=== PATIENT | female | born 1970 | race Caucasian/White ===

== ENCOUNTER → 2016-12-17 | Outpatient (CLI) | payer OTHER ==
[~2016-12-17] MED LIST: ANAS1TAB PO; ASCO10004 PO; ASCO1TAB4 PO; CEPH-368 PO; CHOL400T10 PO; CHOL5000 PO; CITA20TA5 PO; DIPHEN/ATROPINE PO; GABA100C8 PO; IMMUNE BOOSTER PO; MELA10TA3 PO; OMEP-110 PO; ONDA4TAB7 PO; OXYC-302 PO; VITAMIN B 6 PO; VITAMIN B12 PO; [UNRECOGNIZED DRUG - CODE] PO; iodoral PO; magnesium PO; nyquil PO
[2016-12-17 15:07] LABS: HEMOGLOBIN 14.1 g/dL (11.7-16.4)
== END | disposition home or self-care (01) ==
LOC: STAR 13:50
PROVIDERS: ATTEND Obstetrics & Gynecology Female Pelvic Medicine and Reconstructive Surgery
DX: Z01.818 Encounter for other preprocedural examination (principal); Z85.3 Personal history of malignant neoplasm of breast
CPT/HCPCS: 36415; 85025

== ENCOUNTER 2016-12-29 05:58 | Day surgery (SDC) | payer OTHER ==
[~2016-12-29] VITALS: Ht 167.6 cm; Wt 60.0 kg
[2016-12-29 06:54] VITALS: BP 128/84
[2016-12-29] MEDS ORDERED: LACTATED RINGERS 1,000 ML IV SCH ×2 (06:54→09:05)
[2016-12-29] MEDS ORDERED: FLUORESCEIN SODIUM 500 MG/5 ML ONE (07:06)
[2016-12-29] MEDS ORDERED: BUPIVACAINE/PF-EPI 0.25% 1:200K ONE (07:06)
[2016-12-29] MEDS ORDERED: CLINDAMYCIN 150 MG/ML, 6ML ONE (07:15)
[2016-12-29] MEDS ORDERED: FENTANYL PF 250 MCG/5ML ONE (07:18)
[2016-12-29] MEDS ORDERED: MIDAZOLAM 1 MG/ML, 2ML ONE (07:19)
[2016-12-29 07:26] LABS: HCG UR OBC PASS
[2016-12-29] MEDS ORDERED: ONDANSETRON 2MG/ML, 2ML ONE (07:26)
[2016-12-29] MEDS ORDERED: PROPOFOL 10 MG/ML, 20ML ONE (07:26)
[2016-12-29] MEDS ORDERED: ROCURONIUM 10 MG/ML ONE (07:26)
[2016-12-29] MEDS ORDERED: KETOROLAC 30 MG/1 ML ONE (07:26)
[2016-12-29] MEDS ORDERED: GLYCOPYRROLATE 0.2MG/1ML ONE (07:26)
[2016-12-29] MEDS ORDERED: NEOSTIGMINE 1 MG/ML, 10ML ONE (07:26)
[2016-12-29] MEDS ORDERED: DEXAMETHASONE 4 MG/ML, 1ML ONE (07:26)
[2016-12-29] MEDS ORDERED: PROMETHAZINE 25 MG/ML, 1ML IV PRN (08:30)
[2016-12-29] MEDS ORDERED: FENTANYL PF 100 MCG/2ML IV PRN (08:30)
[2016-12-29] MEDS ORDERED: MIDAZOLAM 1 MG/ML, 2ML IV PRN (08:30)
[2016-12-29] MEDS ORDERED: METOCLOPRAMIDE 5 MG/ML, 2ML IV PRN (08:30)
[2016-12-29] MEDS ORDERED: ONDANSETRON 2MG/ML, 2ML IVPush PRN ×2 (08:30→09:30)
[2016-12-29] MEDS ORDERED: OXYcodone 5 MG/5 ML ORAL.SOL UDC PO PRN ×2 (08:30→09:30)
[2016-12-29] MEDS ORDERED: ALBUTEROL/IPRATROPIUM 2.5MG/0.5MG, 3 ML NPPB PRN (08:30)
[2016-12-29] MEDS ORDERED: HYDROmorphone 1 MG/ML, 1ML IV PRN (08:30)
[2016-12-29] MEDS ORDERED: hydrALAzine 20 MG/ML, 1ML IV PRN (08:30)
[2016-12-29] MEDS ORDERED: LABETALOL 5MG/ML, 20ML IV PRN (08:30)
[2016-12-29] MEDS ORDERED: ACETAMINOPHEN 325 MG TABLET PO PRN (08:30)
[2016-12-29] MEDS ORDERED: MEPERIDINE/PF 25MG/0.5ML IVPush PRN (08:30)
[2016-12-29] MEDS ORDERED: SILVER NITRATE STICK TP ONE (08:54)
[2016-12-29] MEDS ORDERED: ACETAMINOPHEN 650 MG/20.3 ML UDC ONE (09:22)
[2016-12-29] MEDS ORDERED: ACETAMINOPHEN 325 MG TABLET ONE (09:22)
[2016-12-29] MEDS ORDERED: OXYcodone 5 MG/5 ML ORAL.SOL UDC ONE (09:22)
[2016-12-29] MEDS ORDERED: PROMETHAZINE 12.5 MG SUPP PR ONE (09:30)
[2016-12-29] MEDS ORDERED: IBUPROFEN 600 MG TABLET PO PRN (09:30)
== END 2016-12-29 12:26 | disposition home or self-care (01) ==
LOC: OUT 05:58
PROVIDERS: ATTEND Obstetrics & Gynecology Female Pelvic Medicine and Reconstructive Surgery
DX: D25.2 Subserosal leiomyoma of uterus (principal); J45.909 Unspecified asthma, uncomplicated; F41.9 Anxiety disorder, unspecified; Z85.3 Personal history of malignant neoplasm of breast; Z72.89 Other problems related to lifestyle; Z90.13 Acquired absence of bilateral breasts and nipples
CPT/HCPCS: 58542; 81025; 88307; J1100; J1885; J2250; J2405; J2704; J2710; J3010; J7120; S2900; J3490

== ENCOUNTER → 2017-06-10 | Outpatient (CLI) | payer OTHER ==
[~2017-06-10] MED LIST changes: +ALPH300C PO; +BACOPA PO; +CHERRY JUICE PO; +CHOL500015 PO; +GABA-826 PO; -GABA100C8 PO; +MELA10CA PO; +TURM500C4 PO; +VITA40TA PO; +[UNRECOGNIZED DRUG - OTHER] PO; +calcium carbonate PO; +rhodiola PO
== END ==
LOC: STAR 15:29
PROVIDERS: ATTEND Orthopaedic Surgery
DX: Z02.9 Encounter for administrative examinations, unspecified (principal)

== ENCOUNTER 2017-06-22 05:23 | Day surgery (SDC) | payer OTHER ==
[2017-06-10 15:58] VITALS: BP 130/85
[~2017-06-22] VITALS: Ht 167.6 cm; Wt 62.8 kg
[2017-06-22] MEDS ORDERED: EPINEPHRINE 1 MG/ML, 1ML ONE (06:11)
[2017-06-22] MEDS ORDERED: LACTATED RINGERS 1,000 ML IV SCH (06:11)
[2017-06-22] MEDS ORDERED: BUPIVACAINE/PF 0.5% ONE (06:11)
[2017-06-22] MEDS ORDERED: LIDOCAINE 1%, 2ML ONE (06:17)
[2017-06-22] MEDS ORDERED: LIDOCAINE 1%, 2ML SQ PRN (06:30)
[2017-06-22] MEDS ORDERED: FENTANYL PF 100 MCG/2ML ONE (06:44)
[2017-06-22] MEDS ORDERED: MIDAZOLAM 1 MG/ML, 2ML ONE (06:44)
[2017-06-22] MEDS ORDERED: CLINDAMYCIN 150 MG/ML, 6ML ONE (06:54)
[2017-06-22] MEDS ORDERED: DEXAMETHASONE 4 MG/ML, 1ML ONE (06:56)
[2017-06-22] MEDS ORDERED: ONDANSETRON 2MG/ML, 2ML ONE (06:56)
[2017-06-22] MEDS ORDERED: LIDOCAINE-MPF 2% ,5ML ONE (06:56)
[2017-06-22] MEDS ORDERED: PROPOFOL 10 MG/ML, 20ML ONE (06:56)
[2017-06-22] MEDS ORDERED: KETOROLAC 30 MG/1 ML ONE (07:54)
[2017-06-22] MEDS: KETOROLAC 30 MG/1 ML IV PRN ×2 (07:55→07:56)
[2017-06-22] MEDS ORDERED: PROMETHAZINE 25 MG/ML, 1ML IV PRN (08:00)
[2017-06-22] MEDS ORDERED: hydrALAzine 20 MG/ML, 1ML IV PRN (08:00)
[2017-06-22] MEDS ORDERED: ACETAMINOPHEN 325 MG TABLET PO PRN (08:00)
[2017-06-22] MEDS ORDERED: OXYcodone 5 MG/5 ML ORAL.SOL UDC PO PRN (08:00)
[2017-06-22] MEDS ORDERED: MEPERIDINE/PF 25MG/0.5ML IVPush PRN (08:00)
[2017-06-22] MEDS ORDERED: METOPROLOL 1 MG/ML, 5ML IV PRN (08:00)
== END 2017-06-22 09:15 ==
LOC: OUT 05:23
PROVIDERS: ATTEND Orthopaedic Surgery
DX: G56.01 Carpal tunnel syndrome, right upper limb (principal); Z88.1 Allergy status to other antibiotic agents; Z88.5 Allergy status to narcotic agent; Z88.0 Allergy status to penicillin; Z91.09 Other allergy status, other than to drugs and biological substances
CPT/HCPCS: 29848; J0171; J1100; J1885; J2250; J2405; J2704; J3010; J3490; J7120

== ENCOUNTER → 2019-09-07 | Outpatient (CLI) | payer OTHER ==
[~2019-09-07] MED LIST changes: -CITA20TA5 PO; +CITA20TA6 PO
== END | disposition home or self-care (01) ==
LOC: CFH 14:29
PROVIDERS: ATTEND Genetic Counselor, MS
DX: R31.9 Hematuria, unspecified (principal)
CPT/HCPCS: 74176